=== PATIENT | female | born 1960 | race Caucasian/White ===

== ENCOUNTER 2019-01-12 20:04 | Inpatient (IN) | payer OTHER ==
[~2019-01-12] VITALS: Ht 160 cm; Wt 95.3 kg
[2019-01-12 20:08] VITALS: Ht 160 cm; Wt 95.3 kg
--- NOTE | 2019-01-12 20:19 | NUR ---
PT BIBA WITH C/C DIZZINESS AND A FAINTING SPELL APPROX 1.5HRS MANAGER PROGRAMS. PER MEDICS PT HAS BEEN FIGHTING OFF THE FLU FOR THE PAST COUPLE DAYS, GOT UP TO USE THE RESTROOM AND UPON AMBULATING TO THE RESTROOM FELT DIZZY, FAINTED AND FELL FORWARD ONTO THE FLOOR HITTING HER HEAD. +LOC, ECCHYMOSIS NOTED TO LEFT SIDE OF FOREHEAD, NOSE AND UPPER LIP. PT HAS HX OF MECH FALL X2 ON 01/10/19 FALLING FORWARD ONTO THE GROUND WITH -LOC. ECCYMOSIS NOTED UNDER LEFT BREAST. PAIN UPON PALPATION AND INSPIRATION. PT C/O NAUSEA WITH NO EPISODES OF VOMITING NOTED. PT IS AAOX4. RESP E/U. SPEECH IS CLEAR AND APPROPRIATE. CONNECTED TO FULL SOLE RUFFER. AWAITING MSE.
--- NOTE | 2019-01-12 20:49 | NUR ---
PT REQUESTS TO BE MEDICATED FOR PAIN PRIOR TO PROVIDING URINE SAMPLE.
--- NOTE | 2019-01-12 21:09 | NUR ---
LAB AT [facility].
--- NOTE | 2019-01-12 21:35 | NUR ---
XRAY AT BEDSIDE.
[2019-01-12 21:39] LABS: BASOPHIL % 0.2 % (0-2); PLATELET COUNT 184 x10^3mcL (130-400)
[2019-01-12 21:41] LABS: RED CELL DISTRIBUTION WIDTH 17.1 % (11.5-14.5)
--- NOTE | 2019-01-12 21:48 | NUR ---
PT TAKEN TO CT.
[2019-01-12 21:52] LABS: ALBUMIN 3.1 g/dL (3.4-5.0); BILIRUBIN TOTAL 0.4 mg/dL (0.20-1.00); CALCIUM 7.5 mg/dL (8.5-10.1); CREATININE SERUM 1.1 mg/dL (0.6-1.0); TOTAL PROTEIN, SERUM 6.7 g/dL (6.4-8.2)
--- NOTE | 2019-01-12 21:57 | NUR ---
PT REFUSES STRAIGHT CATH. TO VOID IN BED PADRON FOR URINE SAMPLE TO BE OBTAINED.
--- NOTE | 2019-01-12 22:54 | NUR ---
PT C/O 12/20 PAIN. DOES NOT WANT TO BE PLACED ON A BED PADRON IN FEAR OF MORE PAIN. DR SOLOMON AWARE.
[2019-01-12] MEDS ORDERED: MICARDIS HCT (23:17)
[2019-01-12] MEDS ORDERED: FLUOXETINE HYDR20 M2 PO (23:18)
--- NOTE | 2019-01-12 23:44 | NUR ---
PT ASSISTED TO BEDSIDE COMMODE TOLERATED. DENIES DIZZINESS AT THIS TIME.
[2019-01-13] VITALS (7 sets, daily range): BP systolic 95–119; BP diastolic 37–59
--- NOTE | 2019-01-13 00:13 | NUR ---
REPORT GIVEN TO [facility].
--- NOTE | 2019-01-13 00:13 | NUR ---
IV TO LFA DISLODGED. NEW PIV PLACED TO RIGHT HAND, FLUSHED WITH 10CC NS. NO S/S INIFLTRATION.
--- NOTE | 2019-01-13 00:36 | NUR ---
PT TAKEN UP AT THIS TIME TO TELE. AAOX4. RESP E/U. VSS AT TIME OF TRANSFER. DAUGHTER WITH PATIENT. TRANSFERRED ON FULL CM.
--- NOTE | 2019-01-13 00:50 | NUR ---
RECEIVED PT FROM ED [facility]IA [facility]. ORIENTED PT TO ROOM AND SURROUNDINGS. IV NOTED TO RH PATENT AND INTACT. TELE 19 PLACED ON PT READING NSR. INSTRUCTED PT ON THE USE OF CALL LIGHT FOR ASSISTANCE. ENDORSED PT TO PRIMARY NURSE DULCE
--- NOTE | 2019-01-13 00:55 | NUR ---
RECEIVED PT FROM PREVIOUS SHIFT NURSE. PT AOX4, SPEECH CLEAR, ANSWERS QUESTIONS APPROP. PLACED ON TELE #19, READING NSR. DENIES CP/PRESSURE. DENIES SOB/DIFFICULTY BREATHING, ON RA. IV TO R. HAND, INTACT AND PATENT. DAUGHTER AT BEDSIDE. BED IN LOWEST POSITION. CALL LIGHT WITHIN REACH. WILL CONTINUE TO MONITOR.
--- NOTE | 2019-01-13 01:40 | NUR ---
PT REQUESTING PAIN MEDICATION, NOTIFIED DR REYNOSO OF PT LOW BP. PER DR. ANGELES BUNN TO GIVE MORPHINE WITH BOLUS. MEDICATIONS ADMINISTERED PER ORDERS.
--- NOTE | 2019-01-13 03:04 | NUR ---
PT RESTING IN BED. RR EVEN AND UNLABORED. IN NO ACUTE DISTRESS. CALL LIGHT WITHIN REACH. BED IN LOWEST POSITION. WILL CONTINUE TO MONITOR.
[2019-01-13 06:29] LABS: CALCIUM 6.5 mg/dL (8.5-10.1); CARBON DIOXIDE 24.8 mmol/L (21-32); CHLORIDE SERUM 109 mmol/L (98-107); GFR1 > 60 mL/min; GLUCOSE SERUM 94 mg/dL (74-106); MAGNESIUM 1.1 mg/dL (1.8-2.4); PHOSPHOROUS 2.3 mg/dL (2.5-4.9); POTASSIUM SERUM 3.4 mmol/L (3.5-5.1); SODIUM SERUM 142 mmol/L (136-145)
--- NOTE | 2019-01-13 06:49 | NUR ---
MG 1.1, K 3.[address] REYNOSO VIA [facility]. WILL ENDORSE TO ONCOMING SHIFT NURSE.
[2019-01-13 07:16] LABS: BASOPHIL % 0.2 % (0-2)
[2019-01-13 07:32] LABS: PLATELET COUNT 151 x10^3mcL (130-400); RED CELL DISTRIBUTION WIDTH 17.6 % (11.5-14.5)
--- NOTE | 2019-01-13 09:37 | NUR ---
DOCTOR TENORIO AND MEDICAL TEAM AT BEDSIDE FOR AM ROUND. PATIENT MADE AWARE OF CURRENT CONDITION AND PLAN OF CARE.
[2019-01-13 12:09] LABS: UA SPECIFIC GRAVITY 1.025 (1.005-1.035); microscopic required? YES; urine erythrocyte NEGATIVE (NEGATIVE)
--- NOTE | 2019-01-13 19:10 | NUR ---
RECEIVED PT FROM PREVIOUS SHIFT NURSE. PT AOX4, DENIES VERDUGO/DIZZINESS. ON TELE #19, READING NSR. HR 70, DENIES CP/PRESSURE. DENIES SOB/DIFFICULTY BREATHING, ON RA. IV TO R. HAND, INTACT AND PATENT. BED IN LOWEST POSITION. CALL LIGHT WITHIN REACH. WILL CONTINUE TO MONITOR.
--- NOTE | 2019-01-13 19:23 | NUR ---
NO ACUTE DISTRESS THROUGHOUT SHIFT. VSS. NORCO GIVEN X2 FOR GEN BODY PAIN WITH GOOD RELIEF. BRP. HAD 2 WATERY BM, STOOL SPECIMEN SENT. ALL SCHEDULED MEDS GIVEN.
--- NOTE | 2019-01-14 01:25 | NUR ---
PT EXPERIENCING NAUSEA, CHILLS AND SWEATING. NO TEMP NOTED. PER PT SHE USUALLY TAKES LYRICA 300MG DAILY. INFORMED DR. REYNOSO, PER . SHE WILL WAIT FOR DAY TEAM.
--- NOTE | 2019-01-14 01:30 | NUR ---
PT EXPERIENCING NAUSEA, CHILLS AND SWEATING. NO TEMP NOTED. PER PT SHE USUALLY TAKES LYRICA 300MG DAILY AND HAS NOT TAKEN HER DOSE FOR [address] REYNOSO, PER . SHE WILL WAIT FOR DAY TEAM.
[2019-01-14 04:54] VITALS: BP 145/64
[2019-01-14 06:33] LABS: BASOPHIL % 0.2 % (0-2)
[2019-01-14 07:03] LABS: CALCIUM 6.8 mg/dL (8.5-10.1); CARBON DIOXIDE 23.7 mmol/L (21-32); CHLORIDE SERUM 110 mmol/L (98-107); CREATININE SERUM 0.8 mg/dL (0.6-1.0); GFR1 > 60 mL/min; GLUCOSE SERUM 90 mg/dL (74-106); MAGNESIUM 1.3 mg/dL (1.8-2.4); PHOSPHOROUS 2.3 mg/dL (2.5-4.9); POTASSIUM SERUM 3.2 mmol/L (3.5-5.1); SODIUM SERUM 144 mmol/L (136-145)
[2019-01-14 07:50] LABS: PLATELET COUNT 129 x10^3mcL (130-400); RED CELL DISTRIBUTION WIDTH 17.7 % (11.5-14.5)
[2019-01-14 07:57] VITALS: BP 125/57
--- NOTE | 2019-01-14 08:10 | NUR ---
AT 0710 - RECEIVED PATIENT FROM NIGHT NURSE. AWAKE, ALERT AND ORIENTED X 4. DENIES ANY DIZZINESS AT THIS TIME. IV INFUSING NS AT 100 ML/HR. AT 0745 - HAS EATEN BREAKFAST; SAYS THAT SHE WAS ABLE TO TOLERATE SOME FOOD AT THIS TIME. AWARE OF NEED TO COLLECT STOOL SPECIMEN. APPARENTLY PREVIOUS SPECIMEN WAS DISCARDED BY LAB UNACCEPTABLE. DR CASAREZ NOTIFIED OF PATIENT'S LOW LABS FOLLOWS: K+ 3.2, MG 1.2, PHOS 2.3
--- NOTE | 2019-01-14 09:02 | NUR ---
ECHOCARDIOGRAM PENDING-PT NAUSEOUS
--- NOTE | 2019-01-14 10:10 | NUR ---
AT 0905 - PATIENT C/O NAUSEA. MEDICATED WITH ZOFRAN PER EMAR. DR TENORIO AT BEDSIDE WITH MEDICAL TEAM DOCTORS. PLAN TO DC PATIENT HOME TODAY. AT 0915 - MEDICATED WITH NORCO PER EMAR. PATIENT ALSO GIVEN 20 MEQ KCL AND 400 MG MGOX FOR K+ LEVEL OF 3.2 AND MG LEVEL OF 1.3, ORDERED. AT 1000 - PATIENT RESTING QUIETLY.
--- NOTE | 2019-01-14 10:41 | NUR ---
RECEIVED ORDER FOR CHANGE OF DIET TO CLEAR LIQUID.
[2019-01-14] MEDS ORDERED: ZOFI PO (12:02)
[2019-01-14] MEDS ORDERED: CIPRO500 MG PO (12:04)
[2019-01-14 12:07] VITALS: BP 133/66
[2019-01-14] MEDS ORDERED: NPHOS PO (12:09)
--- NOTE | 2019-01-14 12:42 | NUR ---
PATIENT REQUESTED SHOWER WELL NEED TO BE DISCHARGED BY [address]. SPO[address] CASAREZ. RECEIVED ORDER FOR SHOWER. WILL FIRST ADMINISTER NEXT DOSE OF FLAGYL BEFORE PATIENT SHOWERS DUE TO POSSIBILITY OF LOOSING IV ACCESS.
[2019-01-14 12:50] VITALS: BP 133/66
--- NOTE | 2019-01-14 12:56 | NUR ---
ECHORCARDIOGRAM IN PROGRESS. RECEIVED DISCHARGE ORDERS. PATIENT TAKEN OFF CARDIAC MONITORING.
--- NOTE | 2019-01-14 13:38 | NUR ---
Discount pharmacy card and list to low cost medical clinics given to patient by Keturah.
--- NOTE | 2019-01-14 13:56 | NUR ---
IV CATHETER REMOVED INTACT. PATIENT NOW HAVING SHOWER.
--- NOTE | 2019-01-14 14:09 | NUR ---
C/O SLIGHT DIZZINESS DURING SHOWER. PATIENT ASSISTED BACK TO BED. SITTING ON BED.
--- NOTE | 2019-01-14 14:27 | NUR ---
PRINTED DISCHARGE INFORMATION GIVEN AND EXPLAINED TO PATIENT AND DAUGHTER (VIA FACE TIME). ELECTRONIC PRESCRIPTION HAS BEEN RECEIVED BY PATIENT'S PREFERRED PHARMACY. SITTING IN CHAIR, AWAITING RIDE HOME.
--- NOTE | 2019-01-14 14:47 | NUR ---
DISCHARGE HOME WITH DAUGHTER. TAKEN TO DISCHARGE OFFICE IN WHEELCHAIR BY RIBBER.
== END 2019-01-14 14:44 | disposition home or self-care (01) | DRG 391 ==
LOC: ED 20:04 → DU 23:18
PROVIDERS: Emergency Medicine; ADMIT Internal Medicine
DX: K52.9 Noninfective gastroenteritis and colitis, unspecified (principal); N17.0 Acute kidney failure with tubular necrosis; G90.8 Other disorders of autonomic nervous system; I10 Essential (primary) hypertension; E11.9 Type 2 diabetes mellitus without complications; E86.0 Dehydration; E87.6 Hypokalemia; M19.90 Unspecified osteoarthritis, unspecified site; W18.39XA Other fall on same level, initial encounter; Y93.89 Activity, other specified; Y92.9 Unspecified place or not applicable; Y99.8 Other external cause status; S09.90XA Unspecified injury of head, initial encounter; Z82.49 Family history of ischemic heart disease and other diseases of the circulatory system; F32.9 Major depressive disorder, single episode, unspecified
CPT/HCPCS: 82962; 87046; 87046-59; 97116-GP; G0378; J0744; J1885; J2270; J2405; J3010; J3490; J7030; Q0092